=== PATIENT | female | born 1995 | race Caucasian/White ===

== ENCOUNTER 2022-01-15 03:46 | Emergency (ER) | payer OTHER, MEDICAID, SELFPAY ==
--- NOTE | 2022-01-15 03:50 | ED.EXTPRO ---
HPI - Extremity Problem General Chief complaint: Skin/Abscess/Foreign Body Stated complaint: infection on left leg Time Seen by Provider: 01/15/22 03:49 History of Present Illness HPI Narrative: 26F former smoker with no significant chronic medical history presents for evaluation of infections on her left leg that have been present for the past few weeks. She denies any systemic findings such as fever, chills nor nausea or vomiting. She states that she had small dime to quarter size ulcerations on her likely became very itchy and then over some time it become increasingly erythematous and are now draining. She has no red streaks and has minimal pain. She denies any prior skin infections. She states that she does not ?skin pop? she denies runny nose, sore throat or cough. She has no chest pain or shortness of breath. Related Data Previous Rx's Medication Instructions Recorded doxycycline hyclate 100 mg tablet 100 mg PO BID #20 tabs 01/15/22 Allergies Allergy/AdvReac Type Severity Reaction Status Date / Time No Known Drug Allergies Allergy Verified 01/15/22 04:02 Review of Systems Review of Systems Narrative: GENERAL: Denies chills, fatigue, malaise, fever, sweats. HEENT: Denies sinus pain, ear pain, sore throat, difficulty swallowing, dizziness. RESPIRATORY: Denies dyspnea, cough, wheezing, hemoptysis, sputum. CARDIOVASCULAR: Denies chest pain, palpitations, orthopnea, edema, GASTROINTESTINAL: Denies nausea, vomiting, abdominal pain, diarrhea, constipation, melena. : Denies dysuria, frequency, incontinence, hematuria, urinary retention. MUSCULOSKELETAL: denies weakness, joint pain, or bony pain SKIN: See HPI NEUROLOGIC: Denies weakness, headache, numbness, change in speech, confusion, seizures, incoordination. PSYCHIATRIC: No concerning psychosocial issues. 12 point review of systems is negative except for those stated above Patient History Social History Smoking Status: Current every day smoker Exam Narrative Exam Narrative: GENERAL: [26 year old patient appears stated age. Well-developed patient, in mild distress. HEAD: Atraumatic. Normocephalic. EYES: Pupils equal round and reactive. Extraocular motions intact. No scleral icterus. No injection or drainage. ENT: Nose without bleeding, purulent drainage. Throat without erythema, tonsillar hypertrophy or exudate. Airway patent. NECK: Trachea midline. Non tender CARDIOVASCULAR: Regular rate and rhythm without murmurs, gallops, or rubs. RESPIRATORY: Clear to auscultation. Breath sounds equal bilaterally. No wheezes, rales, or rhonchi. GASTROINTESTINAL: Abdomen soft, non-tender, nondistended. EXTREMITIES: Left lower extremity with 10-20 1-2 cm excoriations with surrounding erythema and some have serous drainage, no purulence, very minimal induration, no fluctuance, no lymphangitis. BACK: Nontender without deformity or crepitance. No flank tenderness. NEURO: AOx3. SKIN: No rash or erythema of visible areas Initial Vital Signs Initial Vital Signs: Vital Signs Temperature 99 F 01/15/22 03:52 Pulse Rate 106 H 01/15/22 03:52 Respiratory Rate 20 01/15/22 03:52 Blood Pressure 107/69 01/15/22 03:52 Pulse Oximetry 100 01/15/22 03:52 Oxygen Delivery Method 01/15/22 03:52 Course Course Course Narrative: patient has no phone, but states that if there is a need to contact her she can be reached at [email or web address] Orders Ordered: ED Orders 01/15/22 03:57 Wound Culture and Gram Stain Stat Discontinued Medications Doxycycline Hyclate (Doxycycline Hyclate 100 Mg Tablet) 100 mg PO NOW ONE Stop: 01/15/22 03:58 Vital Signs Vital signs: Vital Signs - 8 hr 01/15/22 03:52 Temperature 99 F Pulse Rate 106 H Respiratory Rate 20 Blood Pressure 107/69 Pulse Oximetry 100 Oxygen Delivery Method Room Air Discharge Plan Departure Patient Disposition: Home Clinical Impression: Infected wound Instructions: DI for Wound Infection Activity Restrictions/Additional Instructions: *You have been diagnosed with [left leg infected wounds, as we discussed oral antibiotics are appropriate for now. I obtained a wound culture which should result out in a few days, if this culture would suggest a different antibiotics as needed we will call you] *What to do: *Please continue to take your regular medications as directed. [ x] New medication prescriptions sent to your pharmacy: [[facility] ] [ ] New medication written as a paper prescription [ ] No new medications given *Please follow up with your primary care provider in 2-3 days, call for an appointment. Let them know you were seen in the Emergency Department and that we ask that you be seen in follow up. We will electronically transmit a record of today's note if your PCP is in our system *If you do not have a primary care provider please contact the [facility] Resource line at [phone]. They will ask some questions about your medical history and help get you set up with a doctor in the community. *Return to Emergency Department if you should have any new, worsening or concerning symptoms, such as [fever greater than 101 F, shaking chills, worsening pain, persistent vomiting or other bothersome symptoms] Prescriptions: New doxycycline hyclate 100 mg tablet 100 mg PO BID Qty: 20 0RF
[2022-01-15 03:52] VITALS: BP 107/69; PULSE 106; RESP 20; TEMP 37.2; O2SAT 100; BMI 25.0
[2022-01-15] MEDS: DOXYCYCLINE HYCLATE 100 MG TABLET PO (04:12)
== END 2022-01-15 04:15 | disposition home or self-care (01) ==
PROVIDERS: Emergency Provider Emergency Medicine
DX: L08.89 Other specified local infections of the skin and subcutaneous tissue (principal)
CPT/HCPCS: 87070; 87077; 87147; 87186; 87205; 99283

== ENCOUNTER 2022-03-28 05:47 | Emergency (ER) | payer OTHER, MEDICAID, SELFPAY ==
--- NOTE | 2022-03-28 05:56 | ED.SKABFB ---
HPI - Skin/Abscess/Foreign Bdy <Inna Felipe DO - Last Filed: 04/01/22 17:25> General Chief complaint: Skin/Abscess/Foreign Body Stated complaint: left arm swollen Time Seen by Provider: 03/28/22 05:55 History of Present Illness HPI narrative: Patient is a healthy 26-year-old female history of opiate abuse, however no IVDA she smokes Percocets presenting today with left arm pains and swelling. She says it has been there for the last couple of days. Last night she was freezing cold then felt warm. She is multiple tattoos she denies any recent tattoos, she denies any injecting. She denies any chest pain shortness of breath abdominal pain nausea or vomiting. Related Data Previous Rx's Medication Instructions Recorded doxycycline hyclate 100 mg tablet 100 mg PO BID #20 tabs 01/15/22 doxycycline hyclate 100 mg capsule 100 mg PO BID #20 caps 03/28/22 Allergies Allergy/AdvReac Type Severity Reaction Status Date / Time No Known Drug Allergies Allergy Verified 01/15/22 04:02 Review of Systems <Inna Felipe DO - Last Filed: 04/01/22 17:25> Review of Systems ROS Unobtainable: All systems reviewed & are unremarkable except as noted in HPI and below Patient History <Inna Felipe DO - Last Filed: 04/01/22 17:25> Social History Smoking Status: Current every day smoker Smoking Status: Current every day smoker tobacco type: cigarettes Substance Use Type: amphetamines Exam <DO Jaden Lind Last Filed: 04/01/22 17:25> Initial Vital Signs Initial Vital Signs: Vital Signs Temperature 97.6 F 03/28/22 05:58 Pulse Rate 117 H 03/28/22 05:58 Respiratory Rate 20 03/28/22 05:58 Blood Pressure 138/87 03/28/22 05:58 Pulse Oximetry 99 03/28/22 05:58 Oxygen Delivery Method 03/28/22 05:58 GENERAL: Alert pleasant well-appearing 26-year-old female HEENT: Head atraumatic,EOMI, pupils reactive, CARDIOVASCULAR: Regular rate and rhythm without murmurs, rubs or gallops. RESPIRATORY: Breath sounds equal bilaterally, no wheezes rales or rhonchi. ABDOMEN: Soft, nontender. Normoactive bowel sounds all 4 quadrants. No guarding or rebound. EXTREMITIES: Normal range of motion, no clubbing or edema. Neurovascularly intact NEUROLOGICAL: Alert and oriented x4. SKIN: Left arm there is a small wound around the olecranon no fluctuation erythema swelling surrounding it distal radial pulse intact <Ryder Gould, DO - Last Filed: 03/28/22 08:11> Initial Vital Signs Initial Vital Signs: Vital Signs Temperature 97.6 F 03/28/22 05:58 Pulse Rate 117 H 03/28/22 05:58 Respiratory Rate 20 03/28/22 05:58 Blood Pressure 138/87 03/28/22 05:58 Pulse Oximetry 99 03/28/22 05:58 Oxygen Delivery Method 03/28/22 05:58 Course <Inna Felipe DO - Last Filed: 04/01/22 17:25> Orders Ordered: Discontinued Medications Vancomycin HCl (Vancomycin) 1,250 mg in 250 mls @ 250 mls/hr IV NOW ONE Stop: 03/28/22 07:03 Last Infusion: 03/28/22 07:56 Dose: 0 mls/hr Documented By: Admin: 03/28/22 06:51 Dose: 250 mls/hr Documented By: MLConsuelo Ceftriaxone Sodium 1,000 mg/ (Sodium Chloride) 100 mls @ 200 mls/hr IV NOW ONE Stop: 03/28/22 06:04 Last Infusion: 03/28/22 06:51 Dose: 0 mls/hr Documented By: MLConsuelo Admin: 03/28/22 06:44 Dose: 200 mls/hr Documented By: MLM Sodium Chloride (Normal Saline 0.9%) 1,000 mls @ 1,000 mls/hr IV BOLUS ONE Stop: 03/28/22 07:20 Last Infusion: 03/28/22 07:23 Dose: 0 mls/hr Documented By: Admin: 03/28/22 06:25 Dose: 1,000 mls/hr Documented By: GC Ketorolac Tromethamine (Ketorolac 30 Mg/Ml Vial) 15 mg IV NOW ONE Stop: 03/28/22 06:12 Last Admin: 03/28/22 06:19 Dose: 15 mg Documented By: GC Vital Signs Vital signs: Vital Signs - 8 hr 02/03/23 05:58 03/28/22 06:55 03/28/22 06:55 Temperature 97.6 F Pulse Rate 117 H 96 H Respiratory Rate 20 Blood Pressure 138/87 130/73 Pulse Oximetry 99 100 Oxygen Delivery Method Room Air 03/28/22 07:00 03/28/22 07:30 Temperature Pulse Rate 98 H 84 Respiratory Rate Blood Pressure Pulse Oximetry 100 100 Oxygen Delivery Method <Ryder Gould DO - Last Filed: 03/28/22 08:11> Orders Ordered: Discontinued Medications Vancomycin HCl (Vancomycin) 1,250 mg in 250 mls @ 250 mls/hr IV NOW ONE Stop: 03/28/22 07:03 Last Infusion: 03/28/22 07:56 Dose: 0 mls/hr Documented By: Admin: 03/28/22 06:51 Dose: 250 mls/hr Documented By: MLM Ceftriaxone Sodium 1,000 mg/ (Sodium Chloride) 100 mls @ 200 mls/hr IV NOW ONE Stop: 03/28/22 06:04 Last Infusion: 03/28/22 06:51 Dose: 0 mls/hr Documented By: MLConsuelo Admin: 03/28/22 06:44 Dose: 200 mls/hr Documented By: MLM Sodium Chloride (Normal Saline 0.9%) 1,000 mls @ 1,000 mls/hr IV BOLUS ONE Stop: 03/28/22 07:20 Last Infusion: 03/28/22 07:23 Dose: 0 mls/hr Documented By: Admin: 03/28/22 06:25 Dose: 1,000 mls/hr Documented By: TY Ketorolac Tromethamine (Ketorolac 30 Mg/Ml Vial) 15 mg IV NOW ONE Stop: 03/28/22 06:12 Last Admin: 03/28/22 06:19 Dose: 15 mg Documented By: TY Vital Signs Vital signs: Vital Signs - 8 hr 03/28/22 05:58 03/28/22 06:55 03/28/22 06:55 Temperature 97.6 F Pulse Rate 117 H 96 H Respiratory Rate 20 Blood Pressure 138/87 130/73 Pulse Oximetry 99 100 Oxygen Delivery Method Room Air 03/28/22 07:00 03/28/22 07:30 Temperature Pulse Rate 98 H 84 Respiratory Rate Blood Pressure Pulse Oximetry 100 100 Oxygen Delivery Method [facility] - Skin/Abscess/Foreign Bdy <Inna Felipe, DO - Last Filed: 04/01/22 17:25> Lab Data 03/28/22 06:07 03/28/22 06:07 Labs: Lab Results 03/28/22 03/28/22 03/28/22 Range/Units 06:07 06:07 06:07 WBC 10.2 (4.5-11.0) X10^3/uL RBC 4.61 (4.0-5.2) X10^6/uL Hgb 11.2 L (12.0-16.0) g/dL Hct 34.5 L (36-46) % MCV 74.8 L (80-100) fL MCH 24.3 L (26-34) PG MCHC 32.5 (30-36) % RDW 17.9 H (11.6-14.8) % Plt Count 167 (150-400) X10^3/uL Neut % (Auto) 77.0 H (50-75) % Lymph % (Auto) 16.3 L (25-40) % Mills % (Auto) 5.7 (3-14) % Eos % (Auto) 0.8 L (2-4) % Baso % (Auto) 0.2 (0-2) % Neut # (Auto) 7900 H (3061-1332) /uL Lymph # (Auto) 1700 (1126-9915) /uL Mills # (Auto) 600 (0-900) /uL Eos # (Auto) 100 (0-450) /uL Baso # (Auto) 0 (0-100) /uL Sodium 138 (137-145) mmol/L Potassium 3.4 (3.4-5.1) mmol/L Chloride 97 L (98-107) mmol/L Carbon Dioxide 29 (22-32) mmol/L BUN 10 (7-17) mg/dL Creatinine 0.45 L (0.52-1.04) mg/dL Estimated GFR > 60 (>60) mL/min BUN/Creatinine Ratio 22.2 H (6-22) Glucose 120 H (70-100) mg/dL Lactate 0.8 (0.7-2.1) mmol/L Calcium 9.0 (8.4-10.2) mg/dL Total Bilirubin 0.2 (0.2-1.3) mg/dL AST 25 (14-36) IU/L ALT 17 (<35) IU/L Alkaline Phosphatase 62 (38-126) U/L Total Protein 8.1 (6.3-8.2) g/dL Albumin 4.3 (3.5-5.0) g/dL Globulin 3.8 (1.7-4.1) g/dL Albumin/Globulin Ratio 1.1 (1.0-2.8) Procalcitonin 0.04 (<0.5) ng/mL MDM Narrative Medical decision making narrative: Patient 26-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 There does seem to be a source of infection she is mildly tachycardic initially that improved with Toradol and fluids. No hypotension. Blood work is overall reassuring. No significant leukocytosis lactic acidosis or elevated procalcitonin. There is swelling redness and source of infection. Other possibilities included DVT. Previously her cultures were sensitive to doxycycline. She received IV fluids Rocephin vancomycin and Toradol in the ED. will discharge her home on doxycycline. Patient signed out to Dr. Gould waiting for medications to finish <Ryder Gould, - Last Filed: 03/28/22 08:11> Lab Data Labs: Lab Results 03/28/22 03/28/22 03/28/22 Range/Units 06:07 06:07 06:07 WBC 10.2 (4.5-11.0) X10^3/uL RBC 4.61 (4.0-5.2) X10^6/uL Hgb 11.2 L (12.0-16.0) g/dL Hct 34.5 L (36-46) % MCV 74.8 L (80-100) fL MCH 24.3 L (26-34) PG MCHC 32.5 (30-36) % RDW 17.9 H (11.6-14.8) % Plt Count 167 (150-400) X10^3/uL Neut % (Auto) 77.0 H (50-75) % Lymph % (Auto) 16.3 L (25-40) % Mills % (Auto) 5.7 (3-14) % Eos % (Auto) 0.8 L (2-4) % Baso % (Auto) 0.2 (0-2) % Neut # (Auto) 7900 H (0429-1900) /uL Lymph # (Auto) 1700 (9098-9879) /uL Mills # (Auto) 600 (0-900) /uL Eos # (Auto) 100 (0-450) /uL Baso # (Auto) 0 (0-100) /uL Sodium 138 (137-145) mmol/L Potassium 3.4 (3.4-5.1) mmol/L Chloride 97 L (98-107) mmol/L Carbon Dioxide 29 (22-32) mmol/L BUN 10 (7-17) mg/dL Creatinine 0.45 L (0.52-1.04) mg/dL Estimated GFR > 60 (>60) mL/min BUN/Creatinine Ratio 22.2 H (6-22) Glucose 120 H (70-100) mg/dL Lactate 0.8 (0.7-2.1) mmol/L Calcium 9.0 (8.4-10.2) mg/dL Total Bilirubin 0.2 (0.2-1.3) mg/dL AST 25 (14-36) IU/L ALT 17 (<35) IU/L Alkaline Phosphatase 62 (38-126) U/L Total Protein 8.1 (6.3-8.2) g/dL Albumin 4.3 (3.5-5.0) g/dL Globulin 3.8 (1.7-4.1) g/dL Albumin/Globulin Ratio 1.1 (1.0-2.8) Procalcitonin 0.04 (<0.5) ng/mL 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 There does seem to be a source of infection she is mildly tachycardic initially that improved with Toradol and fluids. No hypotension. Blood work is overall reassuring. No significant leukocytosis lactic acidosis or elevated procalcitonin. There is swelling redness and source of infection. Other possibilities included DVT. Previously her cultures were sensitive to doxycycline. She received IV fluids Rocephin vancomycin and Toradol in the ED. will discharge her home on doxycycline. Patient signed out to Dr. Gould waiting for medications to finish Dr Gould: Received turned over. Reviewed patient's history and physical up to this point. She is completed her course of antibiotics. Will discharge patient home with oral antibiotics. She was given return precautions. She expressed understanding and agreement. Discharge Plan Departure Patient Disposition: Home Clinical Impression: Cellulitis Instructions: DI for Cellulitis -- Adult Activity Restrictions/Additional Instructions: *You have been diagnosed with cellulitis left arm *What to do: Elevate and ice this should be getting better *Continue to take medications as directed -doxycycline 100 mg twice daily for 10 days --> SENT TO [facility] *Follow up with your primary care provider in 2-3 days or call [phone] *Return to ER if you should have increasing redness swelling drainage or any new, worsening or concerning symptoms Prescriptions: New doxycycline hyclate 100 mg capsule 100 mg PO BID Qty: 20 0RF No Action doxycycline hyclate 100 mg tablet 100 mg PO BID Qty: 20 0RF Stand Alone Forms: Patient Portal/API
[2022-03-28 05:58] VITALS: BP 138/87; PULSE 117; RESP 20; TEMP 36.4; O2SAT 99; BMI 24.3
[2022-03-28] MEDS: KETOROLAC 30 MG/ML VIAL 15 MG IV (06:19)
[2022-03-28 06:23] LABS: Add Manual Diff / Slide Review NO; Basophils Absolute Auto 0 /uL (0-100); Basophils Percent Auto 0.2 % (0-2); Eosinophils Absolute Auto 100 /uL (0-450); Eosinophils Percent Auto 0.8 % (2-4); Hematocrit 34.5 % (36-46); Hemoglobin 11.2 g/dL (12.0-16.0); Lymphocytes Absolute Auto 1700 /uL (1100-4500); Lymphocytes Percent Auto 16.3 % (25-40); Mean Corpuscular HGB Conc 32.5 % (30-36); Mean Corpuscular Hemoglobin 24.3 PG (26-34); Mean Corpuscular Volume 74.8 fL (80-100); Monocytes Absolute Auto 600 /uL (0-900); Monocytes Percent Auto 5.7 % (3-14); Neutrophils Absolute Auto 7900 /uL (1500-7000); Platelet Count 167 X10^3/uL (150-400); Red Blood Cell Count 4.61 X10^6/uL (4.0-5.2); Red Cell Distribution Width 17.9 % (11.6-14.8); White Blood Cell Count 10.2 X10^3/uL (4.5-11.0)
[2022-03-28] MEDS: SODIUM CHLORIDE 0.9% 1,000 ML 1000 ML IV (06:25)
[2022-03-28 06:29] LABS: Alanine Aminotransferase 17 IU/L (<35); Albumin 4.3 g/dL (3.5-5.0); Albumin Globulin Ratio 1.1 (1.0-2.8); Alkaline Phosphatase 62 U/L (38-126); Aspartate Aminotransferase 25 IU/L (14-36); BUN Creatinine Ratio 22.2 (6-22); Bilirubin Total 0.2 mg/dL (0.2-1.3); Blood Urea Nitrogen 10 mg/dL (7-17); Carbon Dioxide 29 mmol/L (22-32); Chloride 97 mmol/L (98-107); Estimated Glomerular Filt Rate > 60 mL/min (>60); Globulin 3.8 g/dL (1.7-4.1); Glucose 120 mg/dL (70-100); HEMOLYSIS < 15 (0-50); Potassium 3.4 mmol/L (3.4-5.1); Sodium 138 mmol/L (137-145); Total Protein 8.1 g/dL (6.3-8.2)
[2022-03-28 06:30] LABS: Lactate (Lactic Acid) 0.8 mmol/L (0.7-2.1)
[2022-03-28] MEDS: cefTRIAXone 1,000 MG in SODIUM CHLORIDE 0.9% 100 ML 200 MG IV (06:44)
[2022-03-28 06:46] LABS: Procalcitonin 0.04 ng/mL (<0.5)
[2022-03-28] MEDS: VANCOMYCIN 1,250 MG/250 ML PIGGYBACK 250 MG IV (06:51)
[2022-03-28 06:55] VITALS: BP 130/73; PULSE 96; O2SAT 100
[2022-03-28 07:00] VITALS: PULSE 98; O2SAT 100
[2022-03-28 07:30] VITALS: PULSE 84; O2SAT 100
[2022-03-28 08:00] VITALS: BP 130/74; PULSE 92; RESP 18; O2SAT 100
== END 2022-03-28 08:20 | disposition home or self-care (01) ==
PROVIDERS: Emergency Medicine; Emergency Provider Emergency Medicine
DX: L03.114 Cellulitis of left upper limb (principal)
CPT/HCPCS: 36415; 80053; 83605; 84145; 85025; 87040; 96365; 96375; 99284; J0696; J1885

== ENCOUNTER 2022-06-02 13:01 | Emergency (ER) | payer OTHER, MEDICAID, SELFPAY ==
[2022-06-02 13:06] VITALS: BP 135/86; PULSE 90; RESP 14; TEMP 36.6; O2SAT 100; BMI 24.3
--- NOTE | 2022-06-02 13:14 | DI.RAD.S_ITS ---
PROCEDURE: XR CHEST 2V INDICATIONS: cough, pleuritic chest pain TECHNIQUE: 2 views of the chest were acquired. COMPARISON: None. FINDINGS: Surgical changes and devices: None. Lungs and pleura: Lungs are clear. No pleural effusions or pneumothorax. Mediastinum: Patchy airspace opacity in the lingula. Bones and chest wall: No suspicious bony abnormalities. Soft tissues appear unremarkable. IMPRESSION: Patchy airspace opacity in the lingula, concerning for pneumonia. Dictated by: Chiki Houston M.D. on 06/02/2022 at 14:21 Approved by: Chiki Houston M.D. on 06/02/2022 at 14:21
[2022-06-02 13:28] VITALS: PULSE 90; O2SAT 97
[2022-06-02 13:29] VITALS: BP 124/71; PULSE 90; O2SAT 97
[2022-06-02 13:30] VITALS: BP 124/71; PULSE 87; PULSE 91; TEMP 36.1; O2SAT 97
[2022-06-02 13:56] LABS: COVID-19 CEPHEID 4-PLEX PCR Negative (Negative); Influenza A - CEPHEID Flu A NEGATIVE (NEGATIVE); Influenza B - CEPHEID Flu B NEGATIVE (NEGATIVE); Respiratory Syncytial Virus Negative (Negative)
[2022-06-02 14:00] VITALS: PULSE 89; O2SAT 98
--- NOTE | 2022-06-02 14:36 | ED_ITS ---
HPI - URI/Sore Throat General Chief Complaint: Upper Respiratory Symptoms Stated Complaint: COUGHING, PAIN IN CHEST, X6 Time Seen by Provider: 06/02/22 13:14 Source: patient Mode of arrival: Ambulatory History of Present Illness HPI Narrative: 26-year-old female smoker presents with a chief complaint of 6 days of increasing cough often productive of yellowish sputum. She has been having body aches and feeling generally unwell for a bit longer than this but symptoms really ramped up in her opinion over the past 6 days or so. She denies nausea or vomiting. She is had no diarrhea. She does have a sharp and pleuritic-type chest pain that is worse with deep breath. She denies any recent travel Related Data Previous Rx's Medication Instructions Recorded doxycycline hyclate 100 mg tablet 100 mg PO BID #20 tabs 01/15/22 doxycycline hyclate 100 mg capsule 100 mg PO BID #20 caps 03/28/22 amoxicillin 500 mg capsule 1,000 mg PO Q8H 5 days #30 caps 06/02/22 benzonatate 200 mg capsule 200 mg PO BID PRN cough #20 caps 06/02/22 Allergies Allergy/AdvReac Type Severity Reaction Status Date / Time No Known Drug Allergies Allergy Verified 01/15/22 04:02 Review of Systems Review of Systems Narrative: GENERAL: See HPI HEENT: Denies sinus pain, ear pain, sore throat, difficulty swallowing, dizziness. RESPIRATORY: See HPI CARDIOVASCULAR: Denies chest pain, palpitations, orthopnea, edema, GASTROINTESTINAL: Denies nausea, vomiting, abdominal pain, diarrhea, constipation, melena. : Denies dysuria, frequency, incontinence, hematuria, urinary retention. MUSCULOSKELETAL: denies weakness, joint pain, or bony pain SKIN: Denies rash, skin lesions, or other NEUROLOGIC: Denies weakness, headache, numbness, change in speech, confusion, seizures, incoordination. PSYCHIATRIC: No concerning psychosocial issues. 12 point review of systems is negative except for those stated above Patient History Social History Smoking Status: Current every day smoker Smoking Status: Current every day smoker tobacco type: cigarettes alcohol intake frequency: other Substance Use Type: does not use Exam Narrative Exam Narrative: GENERAL: [26] year old patient appears stated age. Well-developed patient, in mild distress. HEAD: Atraumatic. Normocephalic. EYES: Pupils equal round and reactive. Extraocular motions intact. No scleral icterus. No injection or drainage. ENT: Nose without bleeding, purulent drainage. Throat without erythema, tonsillar hypertrophy or exudate. Airway patent. NECK: Trachea midline. Non tender CARDIOVASCULAR: Regular rate and rhythm without murmurs, gallops, or rubs. RESPIRATORY: Faint crackles in left base, no significant increased work of breathing, tachypnea, use of accessory muscles or hypoxemia GASTROINTESTINAL: Abdomen soft, non-tender, nondistended. EXTREMITIES: No edema or joint tenderness. BACK: Nontender without deformity or crepitance. No flank tenderness. NEURO: AOx3. SKIN: No rash or erythema of visible areas Initial Vital Signs Initial Vital Signs: Vital Signs Temperature 97.9 F 06/02/22 13:06 Pulse Rate 90 06/02/22 13:06 Respiratory Rate 14 06/02/22 13:06 Blood Pressure 135/86 06/02/22 13:06 Pulse Oximetry 100 06/02/22 13:06 Oxygen Delivery Method Room Air 06/02/22 13:06 Course Orders Ordered: ED Orders 06/02/22 13:10 Consult to OVERNIGHT CAREGIVER - [employer] Stat 06/02/22 13:12 Covid-19 + FLU A/B + RSV - PCR Stat 06/02/22 13:14 Chest [XR chest 2V] Stat Vital Signs Vital signs: Vital Signs - 8 hr 06/02/22 13:06 06/02/22 13:30 06/02/22 13:28 Temperature 97.9 F 96.9 F L Pulse Rate 90 91 H 90 Respiratory Rate 14 Blood Pressure 135/86 124/71 Pulse Oximetry 100 97 97 Oxygen Delivery Method Room Air Room Air 06/02/22 13:29 06/02/22 13:29 06/02/22 13:30 Temperature Pulse Rate 90 87 Respiratory Rate Blood Pressure 124/71 Pulse Oximetry 97 97 Oxygen Delivery Method 06/02/22 14:00 Temperature Pulse Rate 89 Respiratory Rate Blood Pressure Pulse Oximetry 98 Oxygen Delivery Method MDM - URI/Sore Throat Lab Data Labs: Lab Results 06/02/22 Range/Units 13:12 SARS-CoV-2 (PCR) Negative (Negative) Influenza A (RT-PCR) Flu a negative (NEGATIVE) Influenza B (RT-PCR) Flu b negative (NEGATIVE) RSV (PCR) Negative (Negative) Imaging Data Chest x-ray: Radiologist's Impression: Patchy airspace opacity in, concerning for pneumonia MDM Narrative Medical decision making narrative: [26] year old patient presents with cough with greenish sputum Multiple etiologies for patient's symptoms considered including, but not limited to: [Flu, COVID, pneumonia versus other] Prior Charts reviewed in our EMR Primary Historian: patient Labs reviewed and interpreted by myself: Respiratory panel negative for COVID, flu a, flu B and RSV Imaging reviewed: Infiltrate in the left lower lobe and lingula distant with pneumonia Patient's symptoms improved over duration of stay with above-stated therapies. No significant increased work of breathing, no signs of sepsis, no hypoxemia. Patient appropriate for discharge with antibiotics and antitussives Findings and discharge diagnosis discussed with patient/family followed by verbalization of understanding Return precautions discussed with patient/family whom verbalize understanding of diagnosis and plan Discharge Plan Departure Patient Disposition: Home Clinical Impression: Pneumonia Instructions: DI for Pneumonia -- Adult Activity Restrictions/Additional Instructions: *You have been diagnosed with [pneumonia] *What to do: *Please continue to take your regular medications as directed. [ x] New medication prescriptions sent to your pharmacy: [facility] ] [ ] New medication written as a paper prescription [ ] No new medications given *Please follow up with your primary care provider in 2-3 days, call for an appointment. Let them know you were seen in the Emergency Department and that we ask that you be seen in follow up. We will electronically transmit a record of today's note if your PCP is in our system *If you do not have a primary care provider please contact the [facility] Resource line at [phone]. They will ask some questions about your medical history and help get you set up with a doctor in the community. *Return to Emergency Department if you should have any new, worsening or concerning symptoms, such as [fever greater than 101 F, shaking chills, worsening pain, persistent vomiting or other bothersome symptoms] Prescriptions: New amoxicillin 500 mg capsule 1,000 mg PO Q8H 5 Days Qty: 30 0RF benzonatate 200 mg capsule 200 mg PO BID PRN (Reason: cough) Qty: 20 0RF No Action doxycycline hyclate 100 mg tablet 100 mg PO BID Qty: 20 0RF doxycycline hyclate 100 mg capsule 100 mg PO BID Qty: 20 0RF Stand Alone Forms: Patient Portal/API
[2022-06-02 15:10] VITALS: BP 146/79; PULSE 98; O2SAT 96
== END 2022-06-02 15:14 | disposition home or self-care (01) ==
PROVIDERS: Emergency Provider Emergency Medicine
DX: J18.9 Pneumonia, unspecified organism (principal); Z20.822 Contact with and (suspected) exposure to COVID-19
CPT/HCPCS: 0241U; 71046; 99283